=== PATIENT | female | born 1955 | race Caucasian/White ===

== ENCOUNTER 2018-01-29 18:23 | Emergency (ER) | END 2018-01-29 21:49 | disposition home or self-care (01) ==

== ENCOUNTER 2018-04-15 11:57 | Emergency (ER) | END 2018-04-15 14:00 | disposition home or self-care (01) ==

== ENCOUNTER 2019-02-01 10:32 | Emergency (ER) | payer MEDICARE, OTHER ==
[~2019-02-01] VITALS: Ht 167.6 cm; Wt 99.8 kg
[~2019-02-01 10:32] MED LIST: GABA300C16 PO; LORA10CA PO; LOSA50TA14 PO; METO-429 PO; OLME20TA20 PO
[2019-02-01 10:49] VITALS: BP 134/71; PULSE 83; RESP 18; Ht 167.6 cm; Wt 99.8 kg
== END 2019-02-01 12:47 | disposition left against medical advice (07) ==
LOC: E/R 10:32
DX: Z53.21 Procedure and treatment not carried out due to patient leaving prior to being seen by health care provider (principal)
CPT/HCPCS: 93005